=== PATIENT | male | born 1965 | race African-American/Black ===

== ENCOUNTER 2016-08-21 19:55 | Inpatient (IN) | payer SELFPAY ==
[~2016-08-21] VITALS: Ht 188 cm; Wt 122.5 kg
--- NOTE | ~2016-08-21 | O ---
[place], [place] OPERATIVE NOTE NAME: JOCELINE LAW UNIT #: [id number] ROOM: 426 DOCTOR: MARLY MERINO,ABDI BIRTHDATE: [birth year] DOS: GASTROSCOPIC REPORT HISTORY OF PRESENT ILLNESS: A 51-year-old patient who is presented with chief complaint of severe anemia, status post multi transfusion. His H and H at the time of admission 5 and 22. The patient radiologic studies have been unremarkable. PROCEDURE: Today's procedure part of investigation is colonoscopy. PREMEDICATION: Versed and Diprivan. SCOPE: Olympus forward-viewing colonoscope 10L video. REPORT: After putting the patient in the left lateral position and after application of lubricant to the scope, the scope was introduced. Thereafter, under direct visualization, I advanced through the length of colon without difficulty. Base of the cecum explored, appendiceal orifice identified, and ileocecal valve was defined. No acute pathology was identified. The patient was gradually extubated and tolerated the procedure well. IMPRESSION: Normal colonoscopic examination. In view of the fact that there is no endoscopic finding of upper GI tract and lower GI tract, I would recommend anemia workup in this patient B12, folate as well and sickle cell and thalassemia as well to be in consideration and he is going to be fed regular diet today. ABDI LUKE MD CM:OPRECORD:OPERATIVE NOTE [id number] ABDI LUKE MD 08/23/16 1045 interface
--- NOTE | ~2016-08-21 | CON ---
[place], [place] REPORT OF CONSULTATION NAME: JOCELINE LAW UNIT #: [id number] ROOM: 426 DOCTOR: ABDI LUKE MD BIRTHDATE: [birth year] DOS: 08/22/2016 HISTORY OF PRESENT ILLNESS: A 51-year-old patient who has presented with a chief complaint of epigastric abdominal pain, dysphagia, difficulty swallowing as the food is not going down with ease. He has been presented with H and H of 7 and 27, microcytic indices. CT scan of the abdomen and pelvis was obtained. No evidence of obstruction of intra-abdominal organs or acute process was identified. Comprehensive metabolic panel, electrolytes balanced, liver function test balanced, amylase and lipase normal. H and H at initial evaluation was 5 and 22. Post-transfusion, it has been held to ____ and 27. Ferritin level 5.1. PAST MEDICAL HISTORY: Gastroesophageal reflux disease (GERD), gastritis, Ari fundoplication and herniated disk. PAST SURGICAL HISTORY: Also, umbilical hernia repair and appendectomy. MEDICATIONS: No medication at home for chronic illness. SOCIAL HISTORY: Nonsmoker, nonalcohol consumer. FAMILY HISTORY: Noncontributory. ALLERGIES: TO SULFA, PENICILLIN, POTASSIUM, AMPICILLIN AND FLEXERIL. REVIEW OF SYSTEMS: In general: HEENT: Denies double vision, blurred vision. RESPIRATORY: Denies shortness of breath. CARDIOVASCULAR: Denies chest pain. DIGESTIVE SYSTEM: As identified above. PHYSICAL EXAMINATION: VITAL SIGNS: Stable. HEENT: Head normocephalic, nontraumatic. Mouth and buccal mucosa benign. NECK: Supple. No thyromegaly, no cervical lymphadenopathy. CHEST: Symmetric anatomy, equal expansion. No wheeze, no rhonchi. HEART: Normal. ABDOMEN: Soft. No hepato-organomegaly. No pulsatile mass. EXTREMITIES: No cyanosis, no pedal edema. NEUROLOGIC: Alert, oriented to time, place, person. Sensory, motor intact. Cranial nerves 2-12 intact. SKIN: Evaluation of multiple tattoos. IMPRESSION: Dysphagia; severe anemia, hemoglobin of 5, transfusion in progress, in view of the all complex issues discussed above, ruling out esophageal underlying carcinoma versus occult colonic malignancy has to be in configuration for microcytic anemia. PLAN AND DISCUSSION: We are going to proceed with endoscopic assessment of upper GI tract where the symptoms are present. [place], [place] REPORT OF CONSULTATION NAME: JOCELINE LAW UNIT #: [id number] ROOM: 426 DOCTOR: ABDI LUKE MD BIRTHDATE: [birth year] Labs reviewed. Records reviewed. Thank you very much indeed. ABDI LUKE MD CM:CONSTR:REPORT OF CONSULTATION 1553 08/22/16 2304 interface
--- NOTE | ~2016-08-21 | O ---
[place], [place] OPERATIVE NOTE NAME: JOCELINE LAW UNIT #: [id number] ROOM: 426 DOCTOR: MARLY MERINO,ABDI BIRTHDATE: [birth year] DOS: 08/22/2016 INDICATIONS: The patient has presented with hemoglobin of 5 and hematocrit of 22, microcytic indices. Dysphagia. PROCEDURE: Today's procedure part of investigation is panendoscopy plus biopsy. PREMEDICATION: Versed and Diprivan. SCOPE: Olympus forward-viewing gastroscope Q10 video. REPORT: After putting the patient in the left lateral position and after application of lubricant to the scope, the scope was introduced; thereafter, under direct visualization, I advanced through the length of the esophagus without difficulty. Esophagus cervicothoracic distally carefully examined. In general, esophagus appears to be narrowed; however, there is a moderate size hiatal hernia in place, status post previous wrap Ari fundoplication. Gastric pouch was entered. Mild gastritis seen. Antrum was biopsied for H. pylori. Duodenal bulb, second and third part within normal limits. The patient extubated, tolerated the procedure well. IMPRESSION: Gastritis, hiatal hernia of moderate size, status post Ari fundoplication. PLAN AND DISCUSSION: We need a colonoscopic evaluation on this gentleman also. This has to be organized for severe anemia of hemoglobin of 5 and hematocrit of 22 with microcytic indices without being on any medication, anticoagulants, or anti-platelets. Workup in progress. ABDI LUKE MD CM:OPRECORD:OPERATIVE NOTE [id number] ABDI LUKE MD 08/24/16 0350 interface
--- NOTE | ~2016-08-21 | PR ---
[place], [place] PROGRESS NOTE NAME: JOCELINE LAW UNIT #: [id number] ROOM: 426 DOCTOR: YUMIKO MERINO,AICHA BIRTHDATE: [birth year] DOS: 08/22/2016 The patient was admitted with severe acute anemia. The patient was consented for acute anemia. Workup for anemia has been initiated. In the meantime, we will wait for the GI to evaluate. We will also review peripheral smears and give him couple units of packed RBC to keep the hemoglobin above 8. Once record reviewed then further intervention discussed. Full consult to follow. AICHA CALDERON MD CM:YOLY [id number] AICHA CALDERON MD 08/22/16 2211 interface
--- NOTE | ~2016-08-21 | PR ---
[place], [place] PROGRESS NOTE NAME: JOCELINE LAW UNIT #: [id number] ROOM: 426 DOCTOR: AICHA CALDERON MD BIRTHDATE: [birth year] DOS: 08/24/2016 SUBJECTIVE: The patient had upper endoscopy done which showed Ari fundoplication and gastritis and colonoscopy was negative. He also got few units of packed RBCs and workup was ordered, which is pending. He will be seeing me as an outpatient and depending on that, further intervention. AICHA CALDERON MD CM:PNTRANS [id number] AICHA CALDERON MD 08/24/16 1551 interface
[~2016-08-21 19:55] MED LIST: PRILOSEC40 MG PO
[2016-08-21 20:13] VITALS: BP 144/94
[2016-08-21] MEDS ORDERED: PRILOSEC20 M1 PO (20:15)
[2016-08-21 21:59] LABS: ALBUMIN 3.7 gm/dl (3.1-4.5); ALKALINE PHOSPHATASE 72 U/L (45-117); BILIRUBIN, TOTAL 0.6 mg/dl (0.2-1.0); BUN 13 mg/dl (7-24); CARBON DIOXIDE 23 mmol/L (21-32); CHLORIDE 104 mmol/L (98-107); EST GLOM FILT AFRICAN AMERICAN > 60 ml/min; GLUCOSE 88 mg/dL (65-99); POTASSIUM 3.8 mmol/L (3.5-5.1); SGOT/AST 9 IU/L (3-35); SGPT/ALT 17 U/L (12-78); SODIUM 139 mmol/L (136-145); TOTAL PROTEIN 7.8 gm/dL (6.4-8.2)
[2016-08-21 22:43] LABS: HEMATOCRIT 22.1 % (42.0-52.0); MEAN CELL VOLUME 58.8 fl (80.0-94.0); MEAN CORPUSCULAR HGB 14.9 pg (27.0-31.0); MEAN CORPUSCULAR HGB CONC 25.3 g/dl (33.0-37.0); NUCLEATED RED BLOOD CELL 0.3 % (0.0-0.0); PLATELET COUNT AUTOMATED 304 10*3/uL (130-400); RED BLOOD COUNT 3.76 10*6/uL (4.50-5.90); RED CELL DISTRI WIDTH 22.4 % (0-14.5); WHITE BLOOD COUNT 7.5 10*3/uL (4.8-10.8)
[2016-08-21 22:46] LABS: HEMOGLOBIN 5.6 g/dl (14.0-18.0)
[2016-08-21 22:48] LABS: EOSINOPHIL # 0.1 10*3/uL (0-0.4); EOSINOPHILS 1 % (1-4); LYMPHOCYTE # 1.4 10*3/uL (1.3-4.4); MONOCYTE # 0.2 10*3/uL (0.1-1.0); NEUTROPHIL # 5.9 10*3/uL (2.3-7.9); NEUTROPHILS 78 % (47-73); TOTAL CELLS COUNTED 100 #CELLS
[2016-08-21 22:49] LABS: PLATELET SUFFICIENCY NORMAL (NORMAL)
[2016-08-21 22:50] LABS: HYPOCHROMIA MARKED; OVALOCYTES FEW; POLYCHROMASIA MANY; TARGET CELLS FEW
[2016-08-21 22:51] LABS: MICROCYTOSIS MODERATE
[2016-08-22] VITALS (21 sets, daily range): BP systolic 114–145; BP diastolic 66–91
[2016-08-22] MEDS ORDERED: REDNESS RELIEF15 M2 OP (02:25)
[2016-08-22 06:10] LABS: CPK 66 U/L (39-308)
[2016-08-22 06:16] LABS: CKMB < 0.5 ng/ml (0.5-3.6)
[2016-08-22 06:17] LABS: TROPONIN I 0.058 ng/ml (<0.045)
[2016-08-22 10:58] LABS: MEAN CORPUSCULAR HGB 17.7 pg (27.0-31.0); MEAN CORPUSCULAR HGB CONC 28.1 g/dl (33.0-37.0); PLATELET COUNT AUTOMATED 256 10*3/uL (130-400); RED BLOOD COUNT 4.29 10*6/uL (4.50-5.90); RED CELL DISTRI WIDTH 27.4 % (0-14.5); WHITE BLOOD COUNT 6.9 10*3/uL (4.8-10.8)
[2016-08-22 11:01] LABS: IRON 42 ug/dL (65-175); IRON SATURATION 9 %; UIBC 393 ug/dL (110-410)
[2016-08-22 11:03] LABS: HEMOGLOBIN 7.6 g/dl (14.0-18.0)
[2016-08-22 11:04] LABS: IRF 24.6 % (2.4-13.3); MEAN CELL VOLUME 62.9 fl (80.0-94.0)
[2016-08-22 11:14] LABS: EOSINOPHIL # 0.1 10*3/uL (0-0.4); EOSINOPHILS 1 % (1-4); LYMPHOCYTE # 1.2 10*3/uL (1.3-4.4); MONOCYTE # 0.4 10*3/uL (0.1-1.0); NEUTROPHIL # 5.2 10*3/uL (2.3-7.9); NEUTROPHILS 75 % (47-73); TOTAL CELLS COUNTED 100 #CELLS
[2016-08-22 11:15] LABS: HYPOCHROMIA MARKED; MICROCYTOSIS MODERATE; OVALOCYTES FEW; POLYCHROMASIA MODERATE; TARGET CELLS FEW; TEAR DROP CELLS FEW
[2016-08-22 11:16] LABS: PLATELET SUFFICIENCY NORMAL (NORMAL)
[2016-08-22 12:26] LABS: CKMB 0.5 ng/ml (0.5-3.6)
[2016-08-22 12:27] LABS: TROPONIN I 0.054 ng/ml (<0.045)
[2016-08-22 18:11] LABS: CKMB 0.7 ng/ml (0.5-3.6)
[2016-08-22 18:13] LABS: TROPONIN I 0.059 ng/ml (<0.045)
[2016-08-23] VITALS (8 sets, daily range): BP systolic 124–148; BP diastolic 71–89
[2016-08-23 06:23] LABS: HEMATOCRIT 31.3 % (42.0-52.0); MEAN CORPUSCULAR HGB 19.1 pg (27.0-31.0); MEAN CORPUSCULAR HGB CONC 28.8 g/dl (33.0-37.0); PLATELET COUNT AUTOMATED 230 10*3/uL (130-400); RED BLOOD COUNT 4.71 10*6/uL (4.50-5.90); RED CELL DISTRI WIDTH 29.4 % (0-14.5)
[2016-08-23 06:24] LABS: MEAN CELL VOLUME 66.5 fl (80.0-94.0)
[2016-08-23 06:51] LABS: BUN 9 mg/dl (7-24); CARBON DIOXIDE 25 mmol/L (21-32); CHLORIDE 106 mmol/L (98-107); EST GLOM FILT AFRICAN AMERICAN > 60 ml/min; GLUCOSE 91 mg/dL (65-99); POTASSIUM 4.1 mmol/L (3.5-5.1); SODIUM 139 mmol/L (136-145)
[2016-08-23 06:52] LABS: ATYPICAL LYMPHS 3 % (0-0); BASOPHIL # 0.1 10*3/uL (0-0.1); BASOPHILS 1 % (0-1); EOSINOPHIL # 0.1 10*3/uL (0-0.4); EOSINOPHILS 1 % (1-4); MONOCYTE # 0.5 10*3/uL (0.1-1.0); NEUTROPHIL # 4.4 10*3/uL (2.3-7.9); NEUTROPHILS 63 % (47-73); TOTAL CELLS COUNTED 100 #CELLS
[2016-08-23 06:53] LABS: HYPOCHROMIA MODERATE; MICROCYTOSIS SLIGHT; PLATELET SUFFICIENCY NORMAL (NORMAL); POLYCHROMASIA SLIGHT; TARGET CELLS FEW
[2016-08-23 07:07] LABS: HAPTOGLOBIN 001628 105 mg/dL (34-200)
[2016-08-24] VITALS: BP 136/71
[2016-08-24 06:17] LABS: HEMATOCRIT 31.8 % (42.0-52.0); MEAN CELL VOLUME 67.8 fl (80.0-94.0); MEAN CORPUSCULAR HGB 19.2 pg (27.0-31.0); MEAN CORPUSCULAR HGB CONC 28.3 g/dl (33.0-37.0); PLATELET COUNT AUTOMATED 211 10*3/uL (130-400); RED BLOOD COUNT 4.69 10*6/uL (4.50-5.90); WHITE BLOOD COUNT 6.2 10*3/uL (4.8-10.8)
[2016-08-24 06:55] LABS: EOSINOPHIL # 0.3 10*3/uL (0-0.4); EOSINOPHILS 5 % (1-4); LYMPHOCYTE # 1.6 10*3/uL (1.3-4.4); MONOCYTE # 0.4 10*3/uL (0.1-1.0); NEUTROPHILS 64 % (47-73); TOTAL CELLS COUNTED 100 #CELLS
[2016-08-24 06:56] LABS: HYPOCHROMIA MODERATE; MICROCYTOSIS MODERATE; PLATELET SUFFICIENCY NORMAL (NORMAL); POLYCHROMASIA SLIGHT
[2016-08-24 06:57] LABS: SCHISTOCYTES FEW
[2016-08-24 08:00] VITALS: BP 138/80
[2016-08-24 12:00] VITALS: BP 136/86
[2016-08-24 15:07] LABS: HEMOGLOBIN A 98.4 % (94.0-98.0); HEMOGLOBIN A2 1.6 % (0.7-3.1); HEMOGLOBIN SOLUBILITY Negative (Negative)
== END 2016-08-24 13:43 | disposition home or self-care (01) | DRG 812 ==
LOC: ED 19:55 → EDHOLD 08-22 00:08 → 4E 08-22 01:09
PROVIDERS: Internal Medicine; Internal Medicine Hematology & Oncology; Physician Assistant
PROC: 0DB68ZX Excision of Stomach, Via Natural or Artificial Opening Endoscopic, Diagnostic (ICD-10-PCS; principal; 2016-08-22)
PROC: 30233N1 Transfusion of Nonautologous Red Blood Cells into Peripheral Vein, Percutaneous Approach (ICD-10-PCS; 2016-08-22)
PROC: 0DJD8ZZ Inspection of Lower Intestinal Tract, Via Natural or Artificial Opening Endoscopic (ICD-10-PCS; 2016-08-23)
DX: D64.9 Anemia, unspecified (principal); R13.10 Dysphagia, unspecified; K25.9 Gastric ulcer, unspecified as acute or chronic, without hemorrhage or perforation; K21.9 Gastro-esophageal reflux disease without esophagitis; Z83.3 Family history of diabetes mellitus; Z88.1 Allergy status to other antibiotic agents; Z88.0 Allergy status to penicillin; Z88.2 Allergy status to sulfonamides; R00.0 Tachycardia, unspecified; E66.09 Other obesity due to excess calories; Z68.34 Body mass index [BMI] 34.0-34.9, adult; K29.70 Gastritis, unspecified, without bleeding; K44.9 Diaphragmatic hernia without obstruction or gangrene

== ENCOUNTER → 2016-10-07 | Outpatient (CLI) | payer OTHER ==
[~2016-10-07] MED LIST changes: +PRILOSEC20 M1 PO; +REDNESS RELIEF15 M2 OP
[2016-10-07 11:38] LABS: BASO % 0.5 % (0.0-1.0); EOS # 0.1 10*3/uL (0.0-0.4); EOS % 0.7 % (1.0-4.0); HEMATOCRIT 38.1 % (42.0-52.0); LYMPH # 1.4 10*3/uL (1.3-4.4); LYMPH % 16.9 % (27.0-41.0); MEAN CELL VOLUME 71.6 fl (80.0-94.0); MEAN CORPUSCULAR HGB 20.7 pg (27.0-31.0); MEAN CORPUSCULAR HGB CONC 28.9 g/dl (33.0-37.0); MEAN PLATELET VOLUME 9.8 fl (9.6-12.3); MONO # 0.8 10*3/uL (0.1-1.0); MONO % 9.7 % (3.0-9.0); NEUT % 71.7 % (47.0-73.0); PLATELET COUNT AUTOMATED 267 10*3/uL (130-400); RED BLOOD COUNT 5.32 10*6/uL (4.50-5.90); RED CELL DISTRI WIDTH 26.9 % (0-14.5); WHITE BLOOD COUNT 8.4 10*3/uL (4.8-10.8)
== END | disposition home or self-care (01) ==
LOC: LAB 11:09
PROVIDERS: Internal Medicine Hematology & Oncology
DX: D50.9 Iron deficiency anemia, unspecified (principal); D75.9 Disease of blood and blood-forming organs, unspecified

== ENCOUNTER → 2016-11-18 | Outpatient (CLI) | payer OTHER ==
[2016-11-18 11:07] LABS: BASO % 0.5 % (0.0-1.0); EOS # 0.1 10*3/uL (0.0-0.4); EOS % 1.9 % (1.0-4.0); HEMATOCRIT 41.4 % (42.0-52.0); LYMPH # 1.4 10*3/uL (1.3-4.4); LYMPH % 22.3 % (27.0-41.0); MEAN CELL VOLUME 76.2 fl (80.0-94.0); MEAN CORPUSCULAR HGB 22.1 pg (27.0-31.0); MEAN PLATELET VOLUME 9.4 fl (9.6-12.3); MONO # 0.7 10*3/uL (0.1-1.0); PLATELET COUNT AUTOMATED 224 10*3/uL (130-400); RED BLOOD COUNT 5.43 10*6/uL (4.50-5.90); RED CELL DISTRI WIDTH 23.4 % (0-14.5); WHITE BLOOD COUNT 6.3 10*3/uL (4.8-10.8)
== END | disposition home or self-care (01) ==
LOC: LAB 10:50
PROVIDERS: Internal Medicine Hematology & Oncology
DX: D50.9 Iron deficiency anemia, unspecified (principal)

== ENCOUNTER → 2016-12-30 | Outpatient (CLI) | payer OTHER ==
[2016-12-30 13:20] LABS: BASO % 0.3 % (0.0-1.0); EOS # 0.1 10*3/uL (0.0-0.4); EOS % 1.2 % (1.0-4.0); HEMATOCRIT 48.7 % (42.0-52.0); HEMOGLOBIN 14.7 g/dl (14.0-18.0); LYMPH # 1.7 10*3/uL (1.3-4.4); MEAN CELL VOLUME 80.9 fl (80.0-94.0); MEAN CORPUSCULAR HGB 24.4 pg (27.0-31.0); MEAN CORPUSCULAR HGB CONC 30.2 g/dl (33.0-37.0); MEAN PLATELET VOLUME 10.3 fl (9.6-12.3); MONO # 0.8 10*3/uL (0.1-1.0); MONO % 11.8 % (3.0-9.0); NEUT # 4.1 10*3/uL (2.3-7.9); NEUT % 61.4 % (47.0-73.0); PLATELET COUNT AUTOMATED 208 10*3/uL (130-400); RED BLOOD COUNT 6.02 10*6/uL (4.50-5.90); RED CELL DISTRI WIDTH 23.6 % (0-14.5); WHITE BLOOD COUNT 6.6 10*3/uL (4.8-10.8)
== END | disposition home or self-care (01) ==
LOC: LAB 13:04
PROVIDERS: Internal Medicine Hematology & Oncology
DX: D50.9 Iron deficiency anemia, unspecified (principal)

== ENCOUNTER → 2018-02-02 | Outpatient (CLI) | payer OTHER ==
[~2018-02-02] MED LIST changes: +PREDNISONE50 MG PO; +PROVENTIL HFA6.7 GM INH; +ROBAXIN500 M1 PO
[2018-02-02 16:00] LABS: HEMATOCRIT 46.6 % (42.0-52.0); HEMOGLOBIN 15.1 g/dl (14.0-18.0); MEAN CELL VOLUME 92.1 fl (80.0-94.0); MEAN CORPUSCULAR HGB 29.8 pg (27.0-31.0); MEAN CORPUSCULAR HGB CONC 32.4 g/dl (33.0-37.0); MEAN PLATELET VOLUME 9.6 fl (9.6-12.3); RED BLOOD COUNT 5.06 10*6/uL (4.50-5.90); WHITE BLOOD COUNT 8.9 10*3/uL (4.8-10.8)
[2018-02-02 16:16] LABS: ALKALINE PHOSPHATASE 82 U/L (45-117); BUN 11 mg/dl (7-24); CHLORIDE 109 mmol/L (98-107); CHOLESTEROL 253 mg/dL (<200); POTASSIUM 3.8 mmol/L (3.5-5.1); SGOT/AST 16 IU/L (3-35); SGPT/ALT 27 U/L (12-78); SODIUM 142 mmol/L (136-145); TOTAL PROTEIN 8.1 gm/dL (6.4-8.2); TRIGLYCERIDES 96 mg/dl (<150); VLDL CHOLESTEROL 19 mg/dL (6-40)
[2018-02-02 16:17] LABS: FREE T4 0.91 ng/dl (0.76-1.46); HDL CHOLESTEROL 45 mg/dl (40-60); LDL CHOLESTEROL 189 mg/dL (9-159)
[2018-02-02 16:47] LABS: VITAMIN D, 25-HYDROXY 31.8 ng/mL (30-100)
== END | disposition home or self-care (01) ==
LOC: LAB 15:44
PROVIDERS: Family Medicine
DX: Z13.220 Encounter for screening for lipoid disorders (principal); Z12.5 Encounter for screening for malignant neoplasm of prostate; D64.9 Anemia, unspecified; R53.83 Other fatigue

== ENCOUNTER 2018-02-15 11:37 | Emergency (ER) | payer OTHER ==
[~2018-02-15] VITALS: Ht 187.9 cm; Wt 121.6 kg
[~2018-02-15 11:37] MED LIST changes: -PROVENTIL HFA6.7 GM INH
[2018-02-15] MEDS ORDERED: PROVENTIL HFA6.7 GM INH (13:00)
[2018-02-15] MEDS ORDERED: PREDNISONE50 MG PO (13:00)
== END 2018-02-15 14:02 | disposition home or self-care (01) ==
LOC: ED 11:37
DX: J20.9 Acute bronchitis, unspecified (principal); E66.9 Obesity, unspecified; Z88.0 Allergy status to penicillin; Z88.2 Allergy status to sulfonamides; Z88.1 Allergy status to other antibiotic agents; Z88.8 Allergy status to other drugs, medicaments and biological substances; Z79.899 Other long term (current) drug therapy; Z90.49 Acquired absence of other specified parts of digestive tract

== ENCOUNTER 2018-07-14 09:58 | Emergency (ER) | payer OTHER ==
[~2018-07-14] VITALS: Wt 111.1 kg
[~2018-07-14 09:58] MED LIST changes: +PROVENTIL HFA6.7 GM INH
[2018-07-14 10:36] LABS: BASO % 0.5 % (0.0-1.0); EOS # 0.1 10*3/uL (0.0-0.4); EOS % 1.8 % (1.0-4.0); HEMATOCRIT 48.8 % (42.0-52.0); HEMOGLOBIN 16.2 g/dl (14.0-18.0); LYMPH # 1.8 10*3/uL (1.3-4.4); LYMPH % 32.6 % (27.0-41.0); MEAN CELL VOLUME 91.2 fl (80.0-94.0); MEAN CORPUSCULAR HGB 30.3 pg (27.0-31.0); MEAN CORPUSCULAR HGB CONC 33.2 g/dl (33.0-37.0); MEAN PLATELET VOLUME 9.3 fl (9.6-12.3); MONO # 0.7 10*3/uL (0.1-1.0); MONO % 11.8 % (3.0-9.0); NEUT # 2.9 10*3/uL (2.3-7.9); NEUT % 53.1 % (47.0-73.0); PLATELET COUNT AUTOMATED 196 10*3/uL (130-400); RED BLOOD COUNT 5.35 10*6/uL (4.50-5.90); RED CELL DISTRI WIDTH 13.9 % (0-14.5); WHITE BLOOD COUNT 5.5 10*3/uL (4.8-10.8)
[2018-07-14 10:51] LABS: ALBUMIN 3.8 gm/dl (3.1-4.5); ALKALINE PHOSPHATASE 91 U/L (45-117); BUN 23 mg/dl (7-24); CHLORIDE 108 mmol/L (98-107); CREATININE 1.13 mg/dL (0.70-1.30); POTASSIUM 3.8 mmol/L (3.5-5.1); SGOT/AST 32 IU/L (3-35); SGPT/ALT 36 U/L (12-78); SODIUM 138 mmol/L (136-145)
== END 2018-07-14 12:26 | disposition home or self-care (01) ==
LOC: ED 09:58
PROVIDERS: Nurse Practitioner Family
DX: E86.0 Dehydration (principal); M79.642 Pain in left hand; M25.571 Pain in right ankle and joints of right foot; M79.645 Pain in left finger(s); R25.2 Cramp and spasm; Z88.8 Allergy status to other drugs, medicaments and biological substances; Z88.2 Allergy status to sulfonamides; Z88.1 Allergy status to other antibiotic agents; Z88.0 Allergy status to penicillin; Z79.899 Other long term (current) drug therapy

== ENCOUNTER → 2018-10-10 | Outpatient (CLI) | payer OTHER ==
[2018-10-10 15:42] LABS: ALBUMIN 3.3 gm/dl (3.1-4.5); ALKALINE PHOSPHATASE 85 U/L (45-117); BUN 14 mg/dl (7-24); CHLORIDE 110 mmol/L (98-107); CHOLESTEROL 162 mg/dL (<200); CPK 176 U/L (39-308); CREATININE 1.03 mg/dL (0.70-1.30); HDL CHOLESTEROL 35 mg/dl (40-60); LDL CHOLESTEROL 94 mg/dL (9-159); POTASSIUM 3.7 mmol/L (3.5-5.1); SGOT/AST 15 IU/L (3-35); SGPT/ALT 25 U/L (12-78); SODIUM 143 mmol/L (136-145); TOTAL PROTEIN 6.6 gm/dL (6.4-8.2); TRIGLYCERIDES 165 mg/dl (<150); VLDL CHOLESTEROL 33 mg/dL (6-40)
[2018-10-10 16:04] LABS: VITAMIN D, 25-HYDROXY 24.7 ng/mL (30-100)
== END | disposition home or self-care (01) ==
LOC: LAB 14:50
PROVIDERS: Family Medicine
DX: E78.00 Pure hypercholesterolemia, unspecified (principal); E55.9 Vitamin D deficiency, unspecified; R53.83 Other fatigue

== ENCOUNTER → 2018-11-17 | Outpatient (CLI) | payer OTHER | END | disposition home or self-care (01) | LOC: MRI 15:00 | DX: S93.421A Sprain of deltoid ligament of right ankle, initial encounter (principal); S93.601A Unspecified sprain of right foot, initial encounter; M76.61 Achilles tendinitis, right leg; M72.2 Plantar fascial fibromatosis; X58.XXXA Exposure to other specified factors, initial encounter; Y93.89 Activity, other specified; Y92.89 Other specified places as the place of occurrence of the external cause; Y99.8 Other external cause status ==

== ENCOUNTER 2019-05-17 11:11 | Emergency (ER) | payer OTHER ==
[~2019-05-17] VITALS: Ht 187.9 cm; Wt 115.7 kg
[2019-05-17 11:56] LABS: BASO % 0.3 % (0.0-1.0); EOS % 0.5 % (1.0-4.0); HEMATOCRIT 52.1 % (42.0-52.0); HEMOGLOBIN 16.9 g/dl (14.0-18.0); LYMPH # 1.3 10*3/uL (1.3-4.4); LYMPH % 19.2 % (27.0-41.0); MEAN CELL VOLUME 92.2 fl (80.0-94.0); MEAN CORPUSCULAR HGB 29.9 pg (27.0-31.0); MEAN CORPUSCULAR HGB CONC 32.4 g/dl (33.0-37.0); MEAN PLATELET VOLUME 8.9 fl (9.6-12.3); MONO # 0.6 10*3/uL (0.1-1.0); MONO % 8.8 % (3.0-9.0); NEUT # 4.7 10*3/uL (2.3-7.9); PLATELET COUNT AUTOMATED 203 10*3/uL (130-400); RED BLOOD COUNT 5.65 10*6/uL (4.50-5.90); RED CELL DISTRI WIDTH 13.6 % (0-14.5); WHITE BLOOD COUNT 6.6 10*3/uL (4.8-10.8)
[2019-05-17 12:08] LABS: ACT PARTIAL THROMBO TIME 28.5 SECONDS (20.0-32.1)
[2019-05-17 12:12] LABS: ALBUMIN 3.8 gm/dl (3.1-4.5); ALKALINE PHOSPHATASE 75 U/L (45-117); BUN 14 mg/dl (7-24); CHLORIDE 108 mmol/L (98-107); CREATININE 0.95 mg/dL (0.70-1.30); POTASSIUM 4.1 mmol/L (3.5-5.1); SGOT/AST 10 IU/L (3-35); SGPT/ALT 27 U/L (12-78); SODIUM 141 mmol/L (136-145)
[2019-05-17 12:13] LABS: TROPONIN I < 0.015 ng/ml (<0.045)
[2019-05-17] MEDS ORDERED: PREDNISONE50 MG PO (13:06)
[2019-05-17] MEDS ORDERED: ZANAFLEX2 M1 PO (13:06)
== END 2019-05-17 11:43 | disposition home or self-care (01) ==
LOC: ED 11:11
PROVIDERS: Family Medicine
DX: S46.911A Strain of unspecified muscle, fascia and tendon at shoulder and upper arm level, right arm, initial encounter (principal); E86.0 Dehydration; M54.2 Cervicalgia; K21.9 Gastro-esophageal reflux disease without esophagitis; E66.9 Obesity, unspecified; R79.1 Abnormal coagulation profile; Z88.0 Allergy status to penicillin; Z88.2 Allergy status to sulfonamides; Z88.1 Allergy status to other antibiotic agents; Z88.8 Allergy status to other drugs, medicaments and biological substances; Z79.899 Other long term (current) drug therapy; X58.XXXA Exposure to other specified factors, initial encounter; Y93.89 Activity, other specified; Y92.89 Other specified places as the place of occurrence of the external cause; Y99.8 Other external cause status

== ENCOUNTER 2020-03-14 17:37 | Emergency (ER) | payer SELFPAY ==
[~2020-03-14] VITALS: Wt 115.2 kg
[~2020-03-14 17:37] MED LIST changes: +ZANAFLEX2 M1 PO
== END 2020-03-14 19:59 | disposition left against medical advice (07) ==
LOC: ED 17:37
DX: R25.2 Cramp and spasm (principal); Z53.21 Procedure and treatment not carried out due to patient leaving prior to being seen by health care provider

== ENCOUNTER 2022-11-23 10:18 | Emergency (ER) | payer OTHER ==
[~2022-11-23] VITALS: Ht 190.5 cm; Wt 124.7 kg
[2022-11-23 11:24] LABS: BASO % 0.5 % (0.0-1.0); EOS # 0.1 10*3/uL (0.0-0.4); EOS % 1.6 % (1.0-4.0); HEMATOCRIT 50.5 % (42.0-52.0); LYMPH # 1.4 10*3/uL (1.3-4.4); LYMPH % 24.7 % (27.0-41.0); MEAN CELL VOLUME 92.5 fl (80.0-94.0); MEAN CORPUSCULAR HGB 30.4 pg (27.0-31.0); MEAN CORPUSCULAR HGB CONC 32.9 g/dl (33.0-37.0); MEAN PLATELET VOLUME 9.3 fl (9.6-12.3); MONO # 0.6 10*3/uL (0.1-1.0); MONO % 10.3 % (3.0-9.0); NEUT # 3.6 10*3/uL (2.3-7.9); NEUT % 62.6 % (47.0-73.0); PLATELET COUNT AUTOMATED 174 10*3/uL (130-400); RED BLOOD COUNT 5.46 10*6/uL (4.50-5.90); RED CELL DISTRI WIDTH 14.7 % (0-14.5); WHITE BLOOD COUNT 5.7 10*3/uL (4.8-10.8)
[2022-11-23 11:36] LABS: ACT PARTIAL THROMBO TIME 30.6 SECONDS (20.0-32.1)
[2022-11-23 11:50] LABS: ALKALINE PHOSPHATASE 70 U/L (46-116); BUN 13 mg/dl (9-23); CHLORIDE 107 mmol/L (98-107); LIPASE 31 U/L (12-53); POTASSIUM 4.7 mmol/L (3.4-5.1); SGPT/ALT 24 U/L (10-49); TOTAL PROTEIN 7.2 gm/dL (6.0-8.0)
== END 2022-11-23 14:17 | disposition home or self-care (01) ==
LOC: ED 10:18
PROVIDERS: Emergency Medicine
DX: R51.9 Headache, unspecified (principal); Z88.2 Allergy status to sulfonamides; Z88.0 Allergy status to penicillin; Z88.1 Allergy status to other antibiotic agents; Z88.8 Allergy status to other drugs, medicaments and biological substances; Z90.49 Acquired absence of other specified parts of digestive tract; Z98.890 Other specified postprocedural states

== ENCOUNTER 2023-09-19 12:05 | Emergency (ER) | payer OTHER ==
[~2023-09-19] VITALS: Ht 187.9 cm; Wt 127.0 kg
[2023-09-19] MEDS ORDERED: ATORVASTATIN CA20 M1 PO (12:41)
[2023-09-19] MEDS ORDERED: LISINOPRIL5 MG PO (12:41)
[2023-09-19] MEDS ORDERED: SLOW FE137 MG PO (12:42)
[2023-09-19] MEDS ORDERED: METFORMIN HYD1000 MG PO (12:42)
[2023-09-19] MEDS ORDERED: OMEPRAZOLE40 MG PO (12:42)
[2023-09-19] MEDS ORDERED: SODIUM CHLORIDE 0.9% 1,000 ML IV ONE (13:05)
[2023-09-19 13:16] LABS: BASO % 0.6 % (0.0-1.0); EOS % 0.7 % (1.0-4.0); HEMATOCRIT 48.5 % (42.0-52.0); LYMPH # 1.6 10*3/uL (1.3-4.4); LYMPH % 29.4 % (27.0-41.0); MEAN CELL VOLUME 92.2 fl (80.0-94.0); MEAN CORPUSCULAR HGB 29.8 pg (27.0-31.0); MEAN CORPUSCULAR HGB CONC 32.4 g/dl (33.0-37.0); MONO # 0.5 10*3/uL (0.1-1.0); MONO % 8.9 % (3.0-9.0); NEUT # 3.2 10*3/uL (2.3-7.9); NEUT % 60.2 % (47.0-73.0); PLATELET COUNT AUTOMATED 190 10*3/uL (130-400); RED BLOOD COUNT 5.26 10*6/uL (4.50-5.90); RED CELL DISTRI WIDTH 14.3 % (0-14.5); WHITE BLOOD COUNT 5.4 10*3/uL (4.8-10.8)
[2023-09-19 13:39] LABS: BUN 11 mg/dl (9-23); CHLORIDE 105 mmol/L (98-107); POTASSIUM 4.1 mmol/L (3.4-5.1)
== END 2023-09-19 14:41 | disposition home or self-care (01) ==
LOC: ED 12:05
PROVIDERS: Internal Medicine
DX: E86.0 Dehydration (principal); Z88.8 Allergy status to other drugs, medicaments and biological substances; Z88.0 Allergy status to penicillin; Z88.1 Allergy status to other antibiotic agents; Z88.2 Allergy status to sulfonamides; Z90.49 Acquired absence of other specified parts of digestive tract; Z98.890 Other specified postprocedural states